=== PATIENT | female | born 1960 | race Caucasian/White ===

== ENCOUNTER 2019-05-22 15:03 | Outpatient (CLI) | payer MEDICAID ==
[2019-05-22 15:22] LABS: BASOPHILS # (AUTO) 0.1 10^3/uL (0.0-0.1); BASOPHILS % (AUTO) 0.5 %; EOSINOPHILS # (AUTO) 0.3 10^3/uL (0.0-0.7); EOSINOPHILS % (AUTO) 2.9 %; HGB - HEMOGLOBIN 15.4 g/dL (12.0-16.0); LYMPHOCYTES # (AUTO) 2.9 10^3/uL (1.5-3.5); LYMPHOCYTES % (AUTO) 25.3 %; MEAN CORPUSCULAR HEMOGLOBIN 31.1 pg (27.0-31.0); MEAN CORPUSCULAR HGB CONC 31.7 g/dL (32.0-36.0); MEAN CORPUSCULAR VOLUME 98.2 fL (81.0-99.0); MONOCYTES # (AUTO) 0.9 10^3/uL (0.0-1.0); MONOCYTES % (AUTO) 8.1 %; NEUTROPHILS # (AUTO) 7.2 10^3/uL (1.5-6.6); NEUTROPHILS % (AUTO) 62.3 %; PLT - PLATELET COUNT 282 10^3/uL (130-450); RED BLOOD COUNT 4.95 10^6/uL (4.20-5.40); RED CELL DISTRIBUTION WIDTH 13.9 % (12.0-15.0); WHITE BLOOD COUNT 11.6 x10^3/uL (4.8-10.8)
[2019-05-22 15:38] LABS: HB2 TOTAL 15.1 g/dL; HEMOGLOBIN A1C 1.07 g/dL; HEMOGLOBIN A1C % 8.6 % (4.6-6.2)
[2019-05-22 15:48] LABS: ALBUMIN 3.6 g/dL (3.2-5.5); ALBUMIN/GLOBULIN RATIO 0.8 (1.0-2.2); ALKALINE PHOSPHATASE 77 IU/L (42-121); ALT ALANINE AMINOTRANSFERASE 22 IU/L (10-60); AST ASPARTATE AMINOTRANSFERASE 14 IU/L (10-42); BILIRUBIN,TOTAL 0.4 mg/dL (0.2-1.0); BUN - BLOOD UREA NITROGEN 9 mg/dL (6-20); CARBON DIOXIDE - CO2 31 mmol/L (21-32); CHLORIDE 97 mmol/L (101-111); CHOL/HDL RATIO 5.2 (<4.4); CHOLESTEROL 206 mg/dL; CREATININE 0.6 mg/dL (0.4-1.0); GFR - MDRD 103 (>89); GLUCOSE 159 mg/dL (70-100); HDL CHOLESTEROL 40 mg/dL; LDL CHOLESTEROL,CALCULATED 146 mg/dL; LDL/HDL RATIO 3.7 (<4.4); SODIUM 139 mmol/L (135-145); TOTAL PROTEIN 7.9 g/dL (6.7-8.2); VLDL CHOLESTEROL 20 mg/dL
== END 2019-05-22 15:04 | disposition home or self-care (01) ==
LOC: LAB 15:03
PROVIDERS: ATTEND Registered Nurse
DX: E11.9 Type 2 diabetes mellitus without complications (principal); I10 Essential (primary) hypertension
CPT/HCPCS: 36415; 80053; 80061; 83036; 83721; 84443; 85025

== ENCOUNTER 2019-09-19 09:33 | Outpatient (CLI) | payer MEDICAID ==
--- NOTE | 2019-09-19 10:23 | SLEEP CARE CONSULTATION ---
Information from patient questionnaire entered by Veronica Castle. I have reviewed and concur with the information entered by Veronica Castle. This document represents the service I personally performed and the decisions made by me, Donte Dalton MD, [facility]. History of Present Illness Service Date and Time: 09/19/2019932 Reason for Visit: New patient Chief Complaint: reports: Insomnia, Unrefreshed sleep, Snoring, Excessive daytime sleepiness, Observed pauses in breathing, Fatigue, Frequent awakenings at night Duration of Symptoms: 10 years Usual bedtime: 9-11 pm Time it takes to fall asleep: minutes Snores at night: Yes Observed to quit breathing while asleep: Yes Sleeps alone due to snoring: No Number of times waking at night: 3 Reasons for waking at night: reports: Pain, Bathroom Toss, Turn, or Twitch while sleeping: No Recalls having dreams: No Usually gets out of bed at: 6 am Feels refreshed in the morning: No Morning headache: Yes Sleepy or fatigued during the day: Yes Ever fallen asleep while driving: No Takes day naps: Yes Dreams during day naps: Yes Prior sleep studies: No Additional HPI information: I had the pleasure of seeing Ms. Maza today regarding the possibility of her having a sleep disorder. As you know, she is a 58 year old lady who complains of loud snore, observed apneas, frequent awakenings, nocturnal choking, persistent fatigue, and excessive daytime sleepiness. She also has labile blood pressure. She has cousins have obstructive sleep apnea-hypopnea and use CPAPs. - Parasomnia Symptoms Ever been unable to move upon waking from sleep: No Ever felt weak in the knees when startled or emotional: No Bothered by creepy, crawly, restless sensations in legs: No Problems with memory or concentration: Yes (concentration) Subjective Initial [place] Sleepiness Scale score: 15 (in 2020) Past Medical History Past Medical History: reports: Diabetes, Arthritis, Anxiety, Depression Social History The patient's occupation is a caregiver. Patient is Single and lives in [place]. Have you smoked in the past 12 months: Yes Cigarettes per day (20/pack): 20 Years of smokin Smoking Pack Years: 40.0 Alcohol use: Yes Alcohol amount and frequency: 1-2, 3 times a week Caffeine use: Yes Caffeine amount and frequency: 1/2 a pot Family History Family history of sleep disordered breathing: Yes Allergies and Home Medications Drug allergies reviewed: Yes (metformin) Home medication list reviewed: Yes Review of Systems Cardiovascular: reports: high blood pressure. denies: palpitations, chest pain, irregular heart rate or pulse, leg or foot swelling, have to sleep sitting up, other Respiratory: reports: shortness of breath Gastrointestinal: denies: heartburn, difficulty swallowing, nausea, vomitting, diarrhea, abdominal pain, other Urinary: reports: frequency, urgency Neurological: denies: headaches, seizure, head trauma, disorientation, speech dysfunction, gait or balance problems, fainting or unconsciousness, other Psychiatric: reports: anxiety, depression Ear/Nose/Throat: reports: nasal congestion, wisdom teeth removed Endocrine: reports: sluggishness, too hot or cold (cold), increased urination Musculoskeletal: reports: joint pain, back pain Immunologic: reports: sneezing, itching Physical Exam Vital signs obtained and entered by: Detailed physical exam is deferred because the Coronavirus epidemic. Height: 5 ft 7 in Weight: 324 lb Body Mass Index: 50.7 BMI Classification: Morbidly Obese Impression and Plan IMPRESSION: 1. Obstructive Sleep Apnea-Hypopnea Syndrome, as suggested by history of loud and irregular snoring, observed cessation of breath while asleep, frequent awakenings during the night, unrefreshed sleep, and daytime hypersomnolence. Narrow oropharynx and obesity are common predisposing factors for obstructive sleep apnea-hypopnea syndrome. Pathophysiology of sleep-disordered breathing was discussed. I recommend proceeding to polysomnography to confirm the diagnosis and to assess severity. However, because she has an elderly mother who she has to take care of at night, a home sleep apnea test (HSAT) will be ordered. Plan: 1. Schedule a home sleep apnea test (HSAT). 2. Avoid long distance driving or when feeling sleepy. 3. Avoid alcohol, sedative and muscle relaxant around bedtime. 4. Attempt to lose weight. 5. Return in 1 to 2 weeks after the study to discuss results and initiate therapy Visit Type: In Office Time Spent with Patient (minutes): 15 Provider Statement: I spent 100% of the Face to Face Visit with the patient with greater than 50% spent counseling the patient and coordination of care.
== END 2019-09-19 09:34 | disposition home or self-care (01) ==
LOC: SC 09:33
PROVIDERS: ATTEND Internal Medicine Pulmonary Disease
DX: G47.10 Hypersomnia, unspecified (principal); G47.8 Other sleep disorders; R06.83 Snoring; R06.81 Apnea, not elsewhere classified; E66.01 Morbid (severe) obesity due to excess calories; Z68.43 Body mass index [BMI] 50.0-59.9, adult; E11.9 Type 2 diabetes mellitus without complications; F17.210 Nicotine dependence, cigarettes, uncomplicated
CPT/HCPCS: 99203; 99212

== ENCOUNTER 2020-01-17 14:23 | Outpatient (CLI) | payer MEDICAID ==
--- NOTE | 2020-01-17 15:14 | SLEEP CARE CONSULTATION ---
Information from patient questionnaire entered by Gary Peters. I have reviewed and concur with the information entered by Gary Peters. This document represents the service I personally performed and the decisions made by me, Chloé Flores ARNP. History of Present Illness Service Date and Time: 01/17/2020 1423 Previous diagnosis: Moderate, Obstructive Sleep Apnea-Hypopnea Syndrome AHI: 29.2 Reason for follow up: first compliance (12/04) Equipment type: CPAP Equipment obtained from: [employer] ([place]; getting supplies as needed) Mask style: Nasal Backup mask available: Yes (another mask) Last cushion change: 1 month Prior sleep studies: No Year and Where: 2019 [facility] Type of Sleep Study: Home sleep study HPI additional information: MAZIN LIAO was diagnosed to have moderate, AHI 29.2, obstructive sleep apnea-hypopnea syndrome and returned today for CPAP therapy first compliance follow-up. Sleep Study - Results Prior sleep studies: No CPAP Compliance Data - Data Reviewed with Patient Average duration of nightly device use: 4 h 55 min Compliance rate %: 70 Current pressure setting (cmH2O): 4-15 Average residual AHI: 0.6 Central apnea: 0.0 Obstructive apnea: 0.2 Average large leak: 13.3 L/min Subjective Patient concerns: reports: nasal congestion (has history of allergies and congestion). denies: aerophagia, mask discomfort, air blowing in eyes, mask leak noise, condensation in mask/hose, dry mouth, nose, throat, epistaxis, other Observed to snore while using device: No Current pressure setting perceived as: comfortable On therapy, patient: reports: sleeping better, awakening more refreshed, being more awake and alert during the day, more rested overall. denies: drowsiness while driving Initial [place] Sleepiness Scale score: 15 (in 2019) Current [place] Sleepiness Scale score: 9 Allergies and Home Medications Drug allergies reviewed: Yes (neomycin) Home medication list reviewed: Yes (no changes) Review of Systems Review of systems same as previous: Yes (no changes) Physical Exam Heart Rate: 85 O2 Saturation: 95 Height: 5 ft 7 in Weight: 317 lb Body Mass Index: 49.6 BMI Classification: Morbidly Obese Impression and Plan 1. Obstructive Sleep Apnea-Hypopnea Syndrome, moderate, with fair treatment compliance and good apnea control. On CPAP therapy, the patient has better sleep quality and is more rested overall. Patient is having panic attacks that reoccur at the same time at night around 3 AM and she has to remove mask. She has been trying to replace mask once she feels better with good results. She is very happy with results of using the CPAP machine with increased energy and better mood during the day. She does have nasal congestion but states she thinks it is more due to her allergies as this is not new. Nasal congestion can be reduced with increasing the CPAP humidity as shown on sample device. The heated hose can be adjusted higher if condensation with higher humidity setting. Saline nasal spray sample was also given to use prior to CPAP to clear nasal secretions and wash off any nasal allergens to facilitate nasal breathing. In addition, a steamy shower before bed will often assist nasal drainage. Patient's apnea severity and rationale for treatment to reduce apnea, improve sleep quality and reduce cardiovascular and cerebrovascular events was reviewed. I also reviewed the benefit of consistent device use of CPAP for her diabetes. * Change auto CPAP pressure to 6-12 cmH2O * Notify me if snoring with mask or feeling that the pressure is too much or too little * Attempt to lose weight * Call this office if any problems using CPAP * Return for follow up in 1-2 months, or sooner if concerns arise Visit Type: In Office Time Spent with Patient (minutes): 18 Provider Statement: I spent 100% of the Face to Face Visit with the patient with greater than 50% spent counseling the patient and coordination of care.
== END 2020-01-17 14:24 | disposition home or self-care (01) ==
LOC: SC 14:23
PROVIDERS: ATTEND Nurse Practitioner Family
DX: G47.33 Obstructive sleep apnea (adult) (pediatric) (principal); E66.01 Morbid (severe) obesity due to excess calories; Z68.42 Body mass index [BMI] 45.0-49.9, adult
CPT/HCPCS: 99212; 99213

== ENCOUNTER 2020-02-29 11:00 | Outpatient (CLI) | payer MEDICAID ==
--- NOTE | 2020-02-29 11:36 | SLEEP CARE CONSULTATION ---
Information from patient questionnaire entered by Veronica Castle. I have reviewed and concur with the information entered by Veronica Castle. This document represents the service I personally performed and the decisions made by , Chloé Flores ARNP. History of Present Illness Service Date and Time: 02/29/2020 1100 Previous diagnosis: Moderate, Obstructive Sleep Apnea-Hypopnea Syndrome AHI: 29.2 (in 2019) Reason for follow up: other (6 week with pressure change) Equipment type: CPAP Equipment obtained from: [employer] (has not heard from them, nothing since original shipment) Mask style: Nasal Backup mask available: Yes (has other mask) Last cushion change: 1.5 weeks ago Prior sleep studies: Yes Year and Where: 2019 - [facility] Type of Sleep Study: Polysomnography HPI additional information: MAZIN LIAO was diagnosed to have moderate, AHI 29.2, obstructive sleep apnea-hypopnea syndrome and returns via Telehealth visit today for CPAP therapy 6 week pressure change follow-up. CPAP Compliance Data - Data Reviewed with Patient Average duration of nightly device use: 4 hr 4 min Compliance rate %: 40 Current pressure setting (cmH2O): 6-12 Humidity settin Average residual AHI: 0.8 Subjective Missed days of use due to: reports: mask issues, other (falling asleep without and nasal congestion) Patient concerns: reports: nasal congestion, other (daily nasal drip after using CPAP). denies: aerophagia, mask discomfort, air blowing in eyes, mask leak noise, condensation in mask/hose, dry mouth, nose, throat, epistaxis Observed to snore while using device: No (lives alone) Current pressure setting perceived as: comfortable On therapy, patient: reports: sleeping better, awakening more refreshed, being more awake and alert during the day, more rested overall. denies: drowsiness while driving Initial [place] Sleepiness Scale score: 15 (in 2020) Current [place] Sleepiness Scale score: 9 Allergies and Home Medications Drug allergies reviewed: Yes (NKDA) Home medication list reviewed: Yes (no changes) Review of Systems Review of systems same as previous: Yes (no changes) Physical Exam Vital signs obtained and entered by: Telehealth visit to reduce exposure during Covid pandemic Height: 5 ft 7 in Impression and Plan 1. Obstructive Sleep Apnea-Hypopnea Syndrome, moderate, with poor treatment compliance and great apnea control. On CPAP therapy, the patient has better sleep quality and is more rested overall. Her overall compliance has fallen due to problems with congestion in her nose decreasing her ability to breathe through nose. She is using a nasal cushion. She has also been falling asleep on the couch without her CPAP on. Nasal congestion can be reduced with increasing the CPAP humidity as shown on sample device. The heated hose can be adjusted higher if condensation with higher humidity setting. Saline nasal spray sample was also given to use prior to CPAP to clear nasal secretions and wash off any nasal allergens to facilitate nasal breathing. In addition, a steamy shower be fore bed will often assist nasal drainage. She was also encouraged to set an alarm for going to bed that can wake her up if she is on the couch to go into bed and put on CPAP. She voiced understanding and agreement with plan. Patient's apnea severity and rationale for treatment to reduce apnea, improve sleep quality and reduce cardiovascular and cerebrovascular events was reviewed. I also reviewed the benefit of consistent device use of CPAP for diabetes. * Continue autoCPAP pressure at 6-12 cmH2O * Notify me if snoring with mask or feeling that the pressure is too much or too little * Attempt to lose weight * Call this office if any problems using CPAP * Return for follow up in 1-2 months, or sooner if concerns arise Counseling Topics: Spare mask, Weight loss health impact Visit Type: Telehealth Video Video Type: Doximity Patient Location: Home Location of Provider: Office Patient agrees and consents to this telehealth visit type: Yes Patient agrees to have their insurance billed: Yes Time Spent with Patient (minutes): 22 Provider Statement: I spent 100% of the Telehealth Video Call with the patient with greater than 50% spent counseling the patient and coordination of care.
== END 2020-02-29 23:59 | disposition home or self-care (01) ==
LOC: SC 11:00
PROVIDERS: ATTEND Nurse Practitioner Family
DX: G47.33 Obstructive sleep apnea (adult) (pediatric) (principal)

== ENCOUNTER 2020-04-08 10:48 | Outpatient (CLI) | payer MEDICAID ==
--- NOTE | 2020-04-08 11:06 | SLEEP CARE CONSULTATION ---
Information from patient questionnaire entered by Veronica Castle. I have reviewed and concur with the information entered by Veronica Castle. This document represents the service I personally performed and the decisions made by me, Chloé Flores ARNP. History of Present Illness Service Date and Time: 04/08/2020 1100 Previous diagnosis: Moderate, Obstructive Sleep Apnea-Hypopnea Syndrome AHI: 29.2 (in 2019) Reason for follow up: other (6 week) Equipment type: CPAP Equipment obtained from: [employer] (hasn't been ordering supplies) Mask style: Nasal Backup mask available: No (will keep old mask) Last cushion change: over a month Prior sleep studies: Yes Year and Where: 2019 - [facility] Type of Sleep Study: Polysomnography HPI additional information: MAZIN LIAO was diagnosed to have moderate, AHI 29.2, obstructive sleep apnea-hypopnea syndrome and returns via Telehealth visit today for CPAP therapy 6 week follow-up. CPAP Compliance Data - Data Reviewed with Patient Average duration of nightly device use: 3 hr 46 min Compliance rate %: 27 Current pressure setting (cmH2O): 6-12 Humidity settin Average residual AHI: 0.7 Subjective Missed days of use due to: reports: other (moved out of bedroom during holidays) Patient concerns: reports: nasal congestion (still happens but is not the driving force to keep her from using the machine). denies: aerophagia, mask discomfort, air blowing in eyes, mask leak noise, condensation in mask/hose, dry mouth, nose, throat, epistaxis, other Observed to snore while using device: No (doesn't think so) Current pressure setting perceived as: comfortable On therapy, patient: reports: sleeping better, awakening more refreshed, being more awake and alert during the day, more rested overall. denies: drowsiness while driving Initial [place] Sleepiness Scale score: 15 (in 2019) Current [place] Sleepiness Scale score: 12 Allergies and Home Medications Drug allergies reviewed: Yes (neomycin) Home medication list reviewed: Yes (no change) Physical Exam Vital signs obtained and entered by: Telehealth visit to reduce exposure during Covid pandemic Height: 5 ft 7 in Impression and Plan 1. Obstructive Sleep Apnea-Hypopnea Syndrome, moderate, with poor treatment compliance and good apnea control. On CPAP therapy, the patient has had better sleep quality and felt more rested overall. She states she really does not have a good excuse for not using her machine, she has not tried to use it since the 02 of April. She thinks she convinced herself that she was sleeping better without it but she remembers that it did make a lot of difference in her sleep when she started to use it. I encouraged her strongly to start using the CPAP machine tonight and continue use. Patient's apnea severity and rationale for treatment to reduce apnea, improve sleep quality and reduce cardiovascular and cerebrovascular events was reviewed. I also reviewed the benefit of consistent device use of CPAP for her diabetes to help reduce insulin resistance and A1C. She voiced understanding. * Continue auto CPAP pressure at 6-12 cmH2O * Notify me if snoring with mask or feeling that the pressure is too much or too little * Attempt to lose weight * Call this office if any problems using CPAP * Return for follow up in 3 months, or sooner if concerns arise Counseling Topics: Spare mask, Weight loss health impact Visit Type: Telehealth Video Video Type: Oscar Patient Location: Home Location of Provider: Office Patient agrees and consents to this telehealth visit type: Yes Patient agrees to have their insurance billed: Yes Time Spent with Patient (minutes): 16 Provider Statement: I spent 100% of the Telehealth Video Call with the patient with greater than 50% spent counseling the patient and coordination of care.
== END 2020-04-08 10:49 | disposition home or self-care (01) ==
LOC: SC 10:48
PROVIDERS: ATTEND Nurse Practitioner Family
DX: G47.33 Obstructive sleep apnea (adult) (pediatric) (principal)

== ENCOUNTER 2020-07-09 10:49 | Outpatient (CLI) | payer MEDICAID ==
--- NOTE | 2020-07-09 11:11 | SLEEP CARE CONSULTATION ---
Information from patient questionnaire entered by Veronica Castle. I have reviewed and concur with the information entered by Veronica Castle. This document represents the service I personally performed and the decisions made by , Chloé Flores ARNP. History of Present Illness Service Date and Time: 07/09/2020 1040 Previous diagnosis: Moderate, Obstructive Sleep Apnea-Hypopnea Syndrome AHI: 29.2 (in 2019) Reason for follow up: three month Equipment type: CPAP Equipment obtained from: [employer] (hasn't been ordering supplies) Mask style: Nasal Backup mask available: No Prior sleep studies: Yes Year and Where: 2019 - [facility] Type of Sleep Study: Polysomnography HPI additional information: MAZIN LIAO was diagnosed to have moderate, AHI 29.2, obstructive sleep apnea-hypopnea syndrome and returns via Telehealth visit today for CPAP therapy three month follow-up. Subjective Initial [place] Sleepiness Scale score: 15 (in 2019) Current [place] Sleepiness Scale score: 8 Allergies and Home Medications Home medication list reviewed: Yes (restarted metformin) Review of Systems Review of systems same as previous: Yes (no changes) Physical Exam Vital signs obtained and entered by: Telehealth visit to reduce exposure during Covid pandemic Height: 5 ft 7 in Impression and Plan 1. Obstructive Sleep Apnea-Hypopnea Syndrome, moderate. Patient states she is not able to tolerate the CPAP pressure or the mask on her face and had not been using it since our last appointment. I discussed with her that CPAP therapy is recommended for the severity of GRZEGORZ but since she is not tolerating it we could try to see if we can get good apnea control with an oral appliance. Patient is willing to try an oral appliance. I will write a script and she will follow up 1 month after using the oral appliance. I discussed with her that she will have to repeat a sleep study to verify effectiveness of treatment. Patient is also trying to lose weight to reduce severity of her apneas which I advised her would be very helpful too. She voiced understanding and agreement of plan of care. Patient's apnea severity and rationale for treatment to reduce apnea, improve sleep quality and reduce cardiovascular and cerebrovascular events was reviewed. I also reviewed the benefit of consistent device use of CPAP for diabetes. * Stop CPAP therapy * Oral appliance * Attempt to lose weight * Return for follow up one month after using oral appliance to check for effectiveness. Counseling Topics: Weight loss health impact Visit Type: Telehealth Video Video Type: VSee Patient Location: Home Location of Provider: Office Patient agrees and consents to this telehealth visit type: Yes Patient agrees to have their insurance billed: Yes Time Spent with Patient (minutes): 15 Provider Statement: I spent 100% of the Telehealth Video Call with the patient with greater than 50% spent counseling the patient and coordination of care.
== END 2020-07-09 10:50 | disposition home or self-care (01) ==
LOC: SC 10:49
PROVIDERS: ATTEND Nurse Practitioner Family
DX: G47.33 Obstructive sleep apnea (adult) (pediatric) (principal)

== ENCOUNTER 2021-08-21 08:00 | Outpatient (CLI) | payer MEDICAID ==
[2021-08-21 14:36] LABS: BASOPHILS # (AUTO) 0.1 10^3/uL (0.0-0.1); BASOPHILS % (AUTO) 0.5 %; EOSINOPHILS # (AUTO) 0.3 10^3/uL (0.0-0.7); EOSINOPHILS % (AUTO) 2.7 %; HCT - HEMATOCRIT 50.5 % (37.0-47.0); HGB - HEMOGLOBIN 16.8 g/dL (12.0-16.0); LYMPHOCYTES # (AUTO) 3.4 10^3/uL (1.5-3.5); LYMPHOCYTES % (AUTO) 29.8 %; MEAN CORPUSCULAR HEMOGLOBIN 32.2 pg (27.0-31.0); MEAN CORPUSCULAR HGB CONC 33.3 g/dL (32.0-36.0); MEAN CORPUSCULAR VOLUME 96.7 fL (81.0-99.0); MONOCYTES # (AUTO) 1.1 10^3/uL (0.0-1.0); NEUTROPHILS # (AUTO) 6.4 10^3/uL (1.5-6.6); NEUTROPHILS % (AUTO) 56.6 %; PLT - PLATELET COUNT 285 10^3/uL (130-450); RED BLOOD COUNT 5.22 10^6/uL (4.20-5.40); RED CELL DISTRIBUTION WIDTH 13.1 % (12.0-15.0); WHITE BLOOD COUNT 11.2 x10^3/uL (4.8-10.8)
[2021-08-21 14:47] LABS: MICROALBUMIN,URINE 14.6 mg/dL (0-300.0)
[2021-08-21 14:53] LABS: ALBUMIN/GLOBULIN RATIO 0.9 (1.0-2.2); ALKALINE PHOSPHATASE 87 IU/L (42-121); ALT ALANINE AMINOTRANSFERASE 21 IU/L (10-60); AST ASPARTATE AMINOTRANSFERASE 19 IU/L (10-42); BILIRUBIN,TOTAL 0.5 mg/dL (0.2-1.0); BUN - BLOOD UREA NITROGEN 12 mg/dL (6-20); CALCIUM 9.8 mg/dL (8.5-10.3); CARBON DIOXIDE - CO2 31 mmol/L (21-32); CHLORIDE 96 mmol/L (101-111); CHOL/HDL RATIO 5.7 (<4.4); CHOLESTEROL 235 mg/dL; CREATININE 0.5 mg/dL (0.4-1.0); GFR - MDRD 126 (>89); GLUCOSE 119 mg/dL (70-100); HDL CHOLESTEROL 41 mg/dL; LDL CHOLESTEROL,CALCULATED 170 mg/dL; LDL/HDL RATIO 4.1 (<4.4); POTASSIUM 4.2 mmol/L (3.5-5.0); SODIUM 137 mmol/L (135-145); TOTAL PROTEIN 8.3 g/dL (6.7-8.2); TRIGLYCERIDES 121 mg/dL; VLDL CHOLESTEROL 24 mg/dL
[2021-08-21 15:04] LABS: THYROID STIMULATING HORMONE 2.31 uIU/mL (0.34-5.60)
[2021-08-21 20:47] LABS: ESTIMATED AVERAGE GLUCOSE 166 mg/dL (70-100); HEMOGLOBIN A1c% 7.4 % (4.27-6.07)
== END 2021-08-21 23:59 | disposition home or self-care (01) ==
LOC: LAB 08:00
PROVIDERS: ATTEND Nurse Practitioner
DX: E11.9 Type 2 diabetes mellitus without complications (principal); Z13.220 Encounter for screening for lipoid disorders; R53.83 Other fatigue; L65.9 Nonscarring hair loss, unspecified; R00.2 Palpitations; Z86.2 Personal history of diseases of the blood and blood-forming organs and certain disorders involving the immune mechanism
CPT/HCPCS: 36415; 80053; 80061; 82043; 82570; 82607; 83036; 83721; 84443; 85025

== ENCOUNTER 2021-09-11 11:31 | Outpatient (CLI) | payer MEDICAID | END 2021-09-11 11:32 | disposition home or self-care (01) | LOC: MAC.MOP 11:31 | PROVIDERS: ATTEND Nurse Practitioner | DX: R00.2 Palpitations (principal) | CPT/HCPCS: 93246 ==

== ENCOUNTER 2021-10-06 10:00 | Outpatient (CLI) | payer MEDICAID | END 2021-10-06 10:01 | disposition home or self-care (01) | LOC: MAC.MOP 10:00 | PROVIDERS: ATTEND Nurse Practitioner | DX: I48.91 Unspecified atrial fibrillation (principal); I47.1 Supraventricular tachycardia; I49.1 Atrial premature depolarization; I49.3 Ventricular premature depolarization | CPT/HCPCS: 93248 ==

== ENCOUNTER 2022-03-04 12:23 | Outpatient (CLI) | payer MEDICAID ==
[2022-03-04 18:05] LABS: % IRON SATURATION 24 % (20-50); CHOL/HDL RATIO 4.6 (<4.4); CHOLESTEROL 147 mg/dL; HDL CHOLESTEROL 32 mg/dL; HGB - HEMOGLOBIN 14.5 g/dL (12.0-16.0); IRON 87 ug/dL (28-170); LDL CHOLESTEROL,CALCULATED 99 mg/dL; LDL/HDL RATIO 3.1 (<4.4); MEAN CORPUSCULAR HEMOGLOBIN 31.5 pg (27.0-31.0); MEAN CORPUSCULAR HGB CONC 31.5 g/dL (32.0-36.0); MEAN CORPUSCULAR VOLUME 99.8 fL (81.0-99.0); MEAN PLATELET VOLUME 11.6 fL (7.9-10.8); RED BLOOD COUNT 4.61 10^6/uL (4.20-5.40); RED CELL DISTRIBUTION WIDTH 13.2 % (12.0-15.0); TOTAL IRON BINDING CAPACITY 356 ug/dL (250-450); TRANSFERRIN 254 mg/dL (192-382); TRIGLYCERIDES 81 mg/dL; VLDL CHOLESTEROL 16 mg/dL; WHITE BLOOD COUNT 10.3 x10^3/uL (4.8-10.8)
[2022-03-04 20:50] LABS: ESTIMATED AVERAGE GLUCOSE 140 mg/dL (70-100); HEMOGLOBIN A1c% 6.5 % (4.27-6.07)
== END 2022-03-04 12:24 | disposition home or self-care (01) ==
LOC: LAB.N 12:23
PROVIDERS: ATTEND Nurse Practitioner
DX: E78.5 Hyperlipidemia, unspecified (principal); R79.89 Other specified abnormal findings of blood chemistry; E11.9 Type 2 diabetes mellitus without complications
CPT/HCPCS: 36415; 80061; 82728; 83036; 83540; 83721; 84466; 85027

== ENCOUNTER 2022-04-20 15:01 | Outpatient (CLI) | payer MEDICAID ==
[2022-04-20 15:32] LABS: CALCIUM 9.1 mg/dL (8.5-10.3); CREATININE 0.8 mg/dL (0.4-1.0); POTASSIUM 4.7 mmol/L (3.5-5.0)
== END 2022-04-20 15:02 | disposition home or self-care (01) ==
LOC: LAB 15:01
PROVIDERS: ATTEND Internal Medicine Cardiovascular Disease
DX: I48.0 Paroxysmal atrial fibrillation (principal); R07.9 Chest pain, unspecified
CPT/HCPCS: 36415; 80048

== ENCOUNTER 2022-04-27 14:43 | Outpatient (CLI) | payer MEDICAID ==
[2022-04-27 14:58] LABS: BASOPHILS # (AUTO) 0.1 10^3/uL (0.0-0.1); BASOPHILS % (AUTO) 0.5 %; EOSINOPHILS # (AUTO) 0.4 10^3/uL (0.0-0.7); HCT - HEMATOCRIT 48.5 % (37.0-47.0); HGB - HEMOGLOBIN 15.4 g/dL (12.0-16.0); LYMPHOCYTES # (AUTO) 3.5 10^3/uL (1.5-3.5); LYMPHOCYTES % (AUTO) 27.8 %; MEAN CORPUSCULAR HEMOGLOBIN 31.6 pg (27.0-31.0); MEAN CORPUSCULAR HGB CONC 31.8 g/dL (32.0-36.0); MEAN CORPUSCULAR VOLUME 99.4 fL (81.0-99.0); MEAN PLATELET VOLUME 10.8 fL (7.9-10.8); MONOCYTES # (AUTO) 1.5 10^3/uL (0.0-1.0); MONOCYTES % (AUTO) 11.7 %; NEUTROPHILS % (AUTO) 56.4 %; PLT - PLATELET COUNT 281 10^3/uL (130-450); RED BLOOD COUNT 4.88 10^6/uL (4.20-5.40); RED CELL DISTRIBUTION WIDTH 13.2 % (12.0-15.0); WHITE BLOOD COUNT 12.5 x10^3/uL (4.8-10.8)
[2022-04-27 15:09] LABS: CALCIUM 8.9 mg/dL (8.5-10.3); CREATININE 0.6 mg/dL (0.4-1.0); POTASSIUM 4.2 mmol/L (3.5-5.0)
[2022-04-27 15:26] LABS: INR 1.4 (0.8-1.2); PT - PROTHROMBIN TIME 15.3 secs (9.9-12.6)
== END 2022-04-27 14:44 | disposition home or self-care (01) ==
LOC: LAB 14:43
PROVIDERS: ATTEND Physician Assistant Medical
DX: I48.0 Paroxysmal atrial fibrillation (principal)
CPT/HCPCS: 36415; 80048; 85025; 85610

== ENCOUNTER 2022-12-17 11:27 | Outpatient (CLI) | payer MEDICAID ==
[2022-12-17 12:31] LABS: CREATININE,URINE 53.7 mg/dL; MICROALBUM/CREATININE RATIO,UR 182.5 ug/mg (<30.0); MICROALBUMIN,URINE 9.8 mg/dL
[2022-12-17 13:07] LABS: ESTIMATED AVERAGE GLUCOSE 157 mg/dL (70-100); HEMOGLOBIN A1c% 7.1 % (4.27-6.07)
== END 2022-12-17 11:28 | disposition home or self-care (01) ==
LOC: LAB 11:27
PROVIDERS: ATTEND Nurse Practitioner
DX: E11.9 Type 2 diabetes mellitus without complications (principal)
CPT/HCPCS: 36415; 82043; 82570; 83036

== ENCOUNTER 2023-03-22 11:12 | Outpatient (CLI) | payer MEDICAID ==
[2023-03-22 11:34] LABS: CHOL/HDL RATIO 3.4 (<4.4); CHOLESTEROL 136 mg/dL; HDL CHOLESTEROL 40 mg/dL; LDL CHOLESTEROL,CALCULATED 79 mg/dL; TRIGLYCERIDES 87 mg/dL (48-352); VLDL CHOLESTEROL 17 mg/dL
[2023-03-22 12:08] LABS: ESTIMATED AVERAGE GLUCOSE 166 mg/dL (70-100); HEMOGLOBIN A1c% 7.4 % (4.27-6.07)
== END 2023-03-22 11:13 | disposition home or self-care (01) ==
LOC: LAB 11:12
PROVIDERS: ATTEND Nurse Practitioner
DX: E11.9 Type 2 diabetes mellitus without complications (principal); E78.5 Hyperlipidemia, unspecified
CPT/HCPCS: 36415; 80061; 83036; 83721

== ENCOUNTER 2023-06-21 12:33 | Outpatient (CLI) | payer MEDICAID ==
[2023-06-21 12:50] LABS: BASOPHILS # (AUTO) 0.1 10^3/uL (0.0-0.1); BASOPHILS % (AUTO) 0.6 %; EOSINOPHILS # (AUTO) 0.1 10^3/uL (0.0-0.7); EOSINOPHILS % (AUTO) 1.3 %; HGB - HEMOGLOBIN 17.7 g/dL (12.0-16.0); LYMPHOCYTES # (AUTO) 1.6 10^3/uL (1.5-3.5); LYMPHOCYTES % (AUTO) 16.9 %; MEAN CORPUSCULAR HEMOGLOBIN 28.7 pg (27.0-31.0); MEAN CORPUSCULAR HGB CONC 30.5 g/dL (32.0-36.0); MEAN CORPUSCULAR VOLUME 94.2 fL (81.0-99.0); MEAN PLATELET VOLUME 10.5 fL (7.9-10.8); MONOCYTES # (AUTO) 1.1 10^3/uL (0.0-1.0); MONOCYTES % (AUTO) 11.6 %; NEUTROPHILS # (AUTO) 6.7 10^3/uL (1.5-6.6); NEUTROPHILS % (AUTO) 69.2 %; PLT - PLATELET COUNT 292 10^3/uL (130-450); RED BLOOD COUNT 6.16 10^6/uL (4.20-5.40); RED CELL DISTRIBUTION WIDTH 17.7 % (12.0-15.0); WHITE BLOOD COUNT 9.7 x10^3/uL (4.8-10.8)
[2023-06-21 13:03] LABS: ESTIMATED AVERAGE GLUCOSE 183 mg/dL (70-100)
[2023-06-21 13:06] LABS: ALBUMIN 3.5 g/dL (3.2-5.5); ALBUMIN/GLOBULIN RATIO 0.9 (1.0-2.2); BILIRUBIN,TOTAL 0.7 mg/dL (0.2-1.0); CALCIUM 9.4 mg/dL (8.5-10.3); CREATININE 0.6 mg/dL (0.6-1.3); POTASSIUM 4.8 mmol/L (3.5-4.5); TOTAL PROTEIN 7.3 g/dL (6.4-8.9)
[2023-06-21 13:39] LABS: CREATININE,URINE 63.4 mg/dL; MICROALBUM/CREATININE RATIO,UR 168.8 ug/mg (<30.0); MICROALBUMIN,URINE 10.7 mg/dL
== END 2023-06-21 12:34 | disposition home or self-care (01) ==
LOC: LAB 12:33
PROVIDERS: ATTEND Nurse Practitioner
DX: I10 Essential (primary) hypertension (principal); E11.9 Type 2 diabetes mellitus without complications
CPT/HCPCS: 36415; 80053; 82043; 82570; 83036; 85025

== ENCOUNTER 2023-07-01 11:39 | Outpatient (CLI) | payer MEDICAID ==
[2023-07-01 11:56] LABS: BASOPHILS # (AUTO) 0.1 10^3/uL (0.0-0.1); BASOPHILS % (AUTO) 0.6 %; EOSINOPHILS # (AUTO) 0.2 10^3/uL (0.0-0.7); EOSINOPHILS % (AUTO) 1.5 %; HCT - HEMATOCRIT 56.7 % (37.0-47.0); HGB - HEMOGLOBIN 17.3 g/dL (12.0-16.0); LYMPHOCYTES # (AUTO) 1.4 10^3/uL (1.5-3.5); MEAN CORPUSCULAR HEMOGLOBIN 28.8 pg (27.0-31.0); MEAN CORPUSCULAR HGB CONC 30.5 g/dL (32.0-36.0); MEAN CORPUSCULAR VOLUME 94.5 fL (81.0-99.0); MEAN PLATELET VOLUME 11.1 fL (7.9-10.8); MONOCYTES % (AUTO) 9.8 %; NEUTROPHILS # (AUTO) 7.4 10^3/uL (1.5-6.6); NEUTROPHILS % (AUTO) 73.8 %; PLT - PLATELET COUNT 263 10^3/uL (130-450); RED CELL DISTRIBUTION WIDTH 17.5 % (12.0-15.0)
[2023-07-01 12:08] LABS: ALBUMIN 3.5 g/dL (3.2-5.5); ALBUMIN/GLOBULIN RATIO 1.1 (1.0-2.2); BILIRUBIN,TOTAL 0.7 mg/dL (0.2-1.0); CALCIUM 9.3 mg/dL (8.5-10.3); CREATININE 0.6 mg/dL (0.6-1.3); POTASSIUM 4.9 mmol/L (3.5-4.5); TOTAL PROTEIN 6.8 g/dL (6.4-8.9)
== END 2023-07-01 11:40 | disposition home or self-care (01) ==
LOC: LAB 11:39
PROVIDERS: ATTEND Nurse Practitioner
DX: E11.9 Type 2 diabetes mellitus without complications (principal); D75.1 Secondary polycythemia; E87.5 Hyperkalemia
CPT/HCPCS: 36415; 80053; 85025

== ENCOUNTER 2023-07-09 14:46 | Outpatient (CLI) | payer MEDICAID ==
[2023-07-09 14:57] LABS: BASOPHILS # (AUTO) 0.1 10^3/uL (0.0-0.1); BASOPHILS % (AUTO) 0.6 %; EOSINOPHILS # (AUTO) 0.1 10^3/uL (0.0-0.7); EOSINOPHILS % (AUTO) 0.9 %; HCT - HEMATOCRIT 57.2 % (37.0-47.0); HGB - HEMOGLOBIN 17.8 g/dL (12.0-16.0); LYMPHOCYTES # (AUTO) 1.9 10^3/uL (1.5-3.5); LYMPHOCYTES % (AUTO) 18.1 %; MEAN CORPUSCULAR HEMOGLOBIN 28.9 pg (27.0-31.0); MEAN CORPUSCULAR HGB CONC 31.1 g/dL (32.0-36.0); MEAN CORPUSCULAR VOLUME 92.9 fL (81.0-99.0); MEAN PLATELET VOLUME 10.7 fL (7.9-10.8); MONOCYTES % (AUTO) 9.9 %; NEUTROPHILS # (AUTO) 7.4 10^3/uL (1.5-6.6); NEUTROPHILS % (AUTO) 70.1 %; PLT - PLATELET COUNT 277 10^3/uL (130-450); RED BLOOD COUNT 6.16 10^6/uL (4.20-5.40); RED CELL DISTRIBUTION WIDTH 17.9 % (12.0-15.0); WHITE BLOOD COUNT 10.5 x10^3/uL (4.8-10.8)
[2023-07-09 15:15] LABS: CALCIUM 9.9 mg/dL (8.5-10.3); CREATININE 0.6 mg/dL (0.6-1.3); POTASSIUM 4.9 mmol/L (3.5-4.5)
== END 2023-07-09 14:47 | disposition home or self-care (01) ==
LOC: LAB 14:46
PROVIDERS: ATTEND Nurse Practitioner
DX: E87.5 Hyperkalemia (principal); D75.1 Secondary polycythemia
CPT/HCPCS: 36415; 80048; 85025

== ENCOUNTER 2023-11-16 14:56 | Outpatient (CLI) | payer MEDICAID ==
--- NOTE | 2023-11-17 09:12 | CT Report ---
PROCEDURE: Lung Cancer Screen INDICATIONS: SMOKER TECHNIQUE: A CT scan of the chest was performed. Intravenous contrast media was not administered. Images were re corded and evaluated at appropriate window settings. Reformats: axial MIP of the chest, coronal and s agittal. For radiation dose reduction, the following was used: automated exposure control, adjustment of mA and/or kV according to patient size. COMPARISON: None. FINDINGS: Image quality: Excellent. Prior cancer history: Unsure. Lungs and pleura: No pleural effusions. No pneumothorax. Juxtapleural nodules with smooth margins, f avoring benign intrapulmonary lymph nodes. Volume loss and bronchiectasis in the right middle lobe. Mediastinum: Heart size is normal. No pericardial effusion. No large vessel abnormality. No mediastin al adenopathy by size criteria. Three vessel coronary artery calcifications. Chest wall and lower neck: Thyroid is unremarkable. No axillary or supraclavicular adenopathy by size . Bones: No aggressive osseous abnormality. Upper Abdomen: Unremarkable. IMPRESSION: Lung RAD: 2 Recommendation: Continue annual screening in 12 Months with LDCT Non-Lung Significant Findings: Coronary Arterial Calcification - Moderate or Severe. Consider cardiol ogy referral. Volume loss and bronchiectasis in the right middle lobe, which may indicate early non-tuberculous myc obacterium infection. Reviewed by: Tereso Haider MD on 11/17/2023 9:10 AM PDT Approved by: Tereso Haider MD on 11/17/2023 9:10 AM PDT Station ID: [id number]
== END 2023-11-16 14:57 | disposition home or self-care (01) ==
LOC: DI 14:56
DX: Z12.2 Encounter for screening for malignant neoplasm of respiratory organs (principal); F17.200 Nicotine dependence, unspecified, uncomplicated; J47.9 Bronchiectasis, uncomplicated; I25.10 Atherosclerotic heart disease of native coronary artery without angina pectoris; J98.11 Atelectasis

== ENCOUNTER 2023-12-21 10:40 | Outpatient (CLI) | payer MEDICAID ==
[2023-12-21 11:15] LABS: CRP - C-REACTIVE PROTEIN 0.9 mg/dL (<0.5); URIC ACID 5.7 mg/dL (2.3-6.6)
[2023-12-21 12:11] LABS: ESTIMATED AVERAGE GLUCOSE 128 mg/dL (70-100); HEMOGLOBIN A1c% 6.1 % (4.27-6.07)
[2023-12-21 12:33] LABS: RHEUMATOID FACTOR NEGATIVE (Negative)
[2023-12-22 04:10] LABS: HBsAG SCREEN Negative (Negative)
[2023-12-22 19:08] LABS: ANTI-DNA (DS) AB QN <1 IU/mL (0-9)
== END 2023-12-21 10:41 | disposition home or self-care (01) ==
LOC: LAB 10:40
PROVIDERS: ATTEND Nurse Practitioner
DX: E11.9 Type 2 diabetes mellitus without complications (principal); M25.551 Pain in right hip; M25.552 Pain in left hip; M25.512 Pain in left shoulder; M25.511 Pain in right shoulder; M79.642 Pain in left hand; M79.641 Pain in right hand; R16.0 Hepatomegaly, not elsewhere classified
CPT/HCPCS: 36415; 83036; 84550; 85651; 86038; 86140; 86200; 86225; 86430; 86704; 86709; 87340

== ENCOUNTER 2023-12-29 12:36 | Outpatient (CLI) | payer MEDICAID ==
--- NOTE | 2023-12-30 10:00 | Mammography Report ---
BILATERAL DIGITAL SCREENING MAMMOGRAM 3D/2D: 12/29/2023 CLINICAL: Routine screening. Comparison is made to exam dated: 05/09/2014 mammogram - [facility]. The breasts are almost entirely fatty (category a/<25% glandular tissue). No significant masses, calcifications, or other findings are seen in either breast. There has been no significant interval change. IMPRESSION: NEGATIVE There is no mammographic evidence of malignancy. A 1 year screening mammogram is recommended. Based on the Tyrer Cuzick model (a risk assessment model) the patient's lifetime risk is 4.0% and her 10 year risk is 1.8%. According to the ACR, ACS, and NCCN guidelines, an annual breast MRI exam janusz g with mammogram is recommended if the patient's lifetime risk is 20% or greater. This exam was interpreted at Station ID: [id number]. NOTE: For mammograms, a report in lay terms will be sent to the patient. Approximately 15% of breast malignancies will not be visualized mammographically. In the management of a palpable breast mass, a negative mammogram must not discourage biopsy of a clinically suspicious lesion. Electronically Signed By: Blanca pichardo/fidel:12/29/2023 17:53:33 letter sent: No_Letter ACR BI-RADS Category 1: Negative 3341F PARENCHYMAL PATTERN: (F) - The breast(s) demonstrate(s) diffuse fatty replacement. BI-RADS CATEGORY: (1) - 1 RECOMMENDATION: (ANNUAL) - Recommend routine annual screening mammography. [id number] 1 year screening LATERALITY: (B)
== END 2023-12-29 12:37 | disposition home or self-care (01) ==
LOC: DI 12:36
DX: Z12.31 Encounter for screening mammogram for malignant neoplasm of breast (principal)